=== PATIENT | female | born 1945 | race Caucasian/White ===

== ENCOUNTER 2024-01-01 00:27 | Inpatient (IN) | payer BC, OTHER ==
[~2024-01-01] VITALS: Ht 165.1 cm; Wt 90.7 kg
[2024-01-01 00:53] LABS: BASOPHILS % (AUTO) 0.7 % (0.0-2.0); HEMATOCRIT 38.3 % (31.2-41.9); HEMOGLOBIN 12.5 g/dL (10.9-14.3); LYMPHOCYTES # (AUTO) 1.6 K/uL (0.8-4.8); LYMPHOCYTES % (AUTO) 39.5 % (20.5-51.5); MEAN CORPUSCULAR HGB CONC 33 g/dL (32.3-35.6); MEAN CORPUSCULAR VOLUME 95.5 fL (75.5-95.3); MONOCYTES # (AUTO) 0.9 K/uL (0.1-1.30); MONOCYTES % (AUTO) 21.6 % (0.0-11.0); NEUTROPHILS # (AUTO) 1.5 K/uL (1.8-8.9); NEUTROPHILS % (AUTO) 37.2 % (38.5-71.5); PLATELET COUNT (AUTO) 71 K/uL (179-408); RED BLOOD CELL COUNT(AUTO) 4.01 MIL/uL (3.63-4.92); RED CELL DISTRIBUTION WIDTH 14.6 % (12.3-17.7); WHITE BLOOD COUNT (AUTO) 4.1 K/uL (3.8-11.8)
[2024-01-01 00:54] LABS: DIFFERENTIAL COMMENT 1
[2024-01-01 00:56] LABS: NEUTROPHILS % (MANUAL) 0 % (42-75)
[2024-01-01 01:17] LABS: CALCIUM 9.3 mg/dL (8.5-10.1); CARBON DIOXIDE 24 mmol/L (21-32); CHLORIDE 108 mmol/L (98-107); CREATININE 0.7 mg/dL (0.6-1.3); GLUCOSE 102 mg/dL (74-106); POTASSIUM 4.1 mmol/L (3.5-5.1); SODIUM SERUM 140 mmol/L (136-145); UREA NITROGEN, BLOOD 25 mg/dL (7-18)
[2024-01-01 01:29] LABS: ALANINE AMINOTRANSFERASE 32 U/L (14-59); ALBUMIN 3.8 g/dL (3.4-5.0); ALKALINE PHOSPHATASE 104 U/L (50-136); ASPARTATE AMINOTRANSFERASE 23 U/L (15-37); BILIRUBIN,TOTAL 1.1 mg/dL (0.2-1.0); NT-PRO BNP 1166 pg/mL (0-125); TOTAL PROTEIN, SERUM 6.6 g/dL (6.4-8.2)
[2024-01-01] MEDS ORDERED: IOHEXOL 350 100 ML INFUS..BTL ONE (01:32)
[2024-01-01] MEDS ORDERED: SWABABLE VALVE TRANSFER SET EA MC ONE (01:32)
[2024-01-01] MEDS ORDERED: IV NORMAL SALINE 250 ML IV ONE (01:32)
[2024-01-01] MEDS ORDERED: GABA-532 PO (01:33)
[2024-01-01] MEDS ORDERED: DAPA5TAB PO (01:33)
[2024-01-01] MEDS ORDERED: ALPR0.255 PO (01:33)
[2024-01-01] MEDS ORDERED: ASPI-612 PO (01:33)
[2024-01-01] MEDS ORDERED: ATOR10TA PO (01:33)
[2024-01-01] MEDS ORDERED: LEVO25TA2 PO (01:33)
[2024-01-01] MEDS ORDERED: TOPI25TA PO (01:33)
[2024-01-01] MEDS ORDERED: ESZO1TAB11 PO (01:33)
[2024-01-01] MEDS ORDERED: SACU1TAB PO (01:33)
[2024-01-01 03:08] LABS: *BILIRUBIN,URIN NEGATIVE (NEGATIVE); *BLOOD, URINE NEGATIVE (NEGATIVE); *CLARITY,URINE CLEAR (CLEAR); *COLOR,URINE YELLOW (YELLOW); *KETONES,URINE NEGATIVE (NEGATIVE); *PROTEIN,URINE NEGATIVE (NEGATIVE); *UROBILINOGEN,URINE 0.2 E.U./dl (NORMAL); LEUKOCYTE ESTERASE ,URINE NEGATIVE (NEGATIVE); NITRITE, URINE NEGATIVE (NEGATIVE); UGLUCOSE 2+ (NEGATIVE)
[2024-01-01] MEDS ORDERED: ATORVASTATIN 20 MG TABLET ONE (04:43)
[2024-01-01] MEDS: ATORVASTATIN 40 MG TABLET PO STA (04:47)
[2024-01-01] MEDS: LEVOTHYROXINE SODIUM 25 MCG TABLET PO SCH (08:03)
[2024-01-01] MEDS: BLOOD SUGAR DIAGNOSTIC 1 EACH STRIP VI SCH ×2 (08:03→10:12)
[2024-01-01] MEDS: TOPIRAMATE 25 MG TABLET PO SCH (09:17)
[2024-01-01] MEDS: GABAPENTIN 100 MG CAPSULE PO SCH (09:17)
[2024-01-01] MEDS: ASPIRIN 325 MG TABLET PO SCH (09:17)
[2024-01-01] MEDS: PANTOPRAZOLE SODIUM 40 MG VIAL IV SCH (09:17)
[2024-01-01 09:25] VITALS: BP 91/54; TEMP 98.1
[2024-01-01] MEDS ORDERED: ESCI20TA PO (09:45)
[2024-01-01] MEDS ORDERED: gemtesa (09:46)
[2024-01-01] MEDS ORDERED: METO-356 PO (09:48)
[2024-01-01] MEDS ORDERED: BUPR300T52 PO (09:50)
[2024-01-01] MEDS ORDERED: GABA300C PO ×2 (09:52)
[2024-01-01] MEDS ORDERED: OXYC-133 PO (09:53)
[2024-01-01] MEDS ORDERED: LEVO150T8 PO (09:57)
[2024-01-01] MEDS ORDERED: METOPROLOL SUCCINATE XL 25 MG TAB.SR.24H PO SCH (12:00)
[2024-01-01] MEDS ORDERED: ALPRAZOLAM 0.25 MG TABLET PO SCH (12:00)
[2024-01-01] MEDS: METOPROLOL SUCCINATE XL 25 MG TAB.SR.24H PO SCH (12:10)
[2024-01-01] MEDS: ESCITALOPRAM OXALATE 10 MG TABLET PO SCH (12:58)
[2024-01-01] MEDS: buPROPion XL 150 MG TAB.SR.24H PO SCH (12:58)
[2024-01-01] MEDS: LEVOTHYROXINE SODIUM 125 MCG TABLET PO ONE (14:10)
[2024-01-01 16:00] VITALS: BP 105/48; TEMP 98.1; O2SAT 94
[2024-01-01] MEDS: SACUBITRIL/VALSARTAN 24 MG-26 TABLET PO SCH (17:12)
[2024-01-01 20:10] VITALS: BP 98/56; TEMP 98.9; O2SAT 95
[2024-01-01] MEDS: ATORVASTATIN 40 MG TABLET PO SCH (20:37)
[2024-01-01] MEDS: GABAPENTIN 300 MG CAPSULE PO SCH (20:38)
[2024-01-01] MEDS ORDERED: ATORVASTATIN 40 MG TABLET PO SCH (21:00)
[2024-01-01] MEDS ORDERED: ATORVASTATIN 10 MG TABLET PO SCH (21:00)
[2024-01-01] MEDS: ALPRAZOLAM 0.5 MG TABLET PO PRN (23:55)
[2024-01-02] VITALS: BP 131/70; TEMP 98.3; O2SAT 95
[2024-01-02 04:59] VITALS: BP 138/54; TEMP 97.8; O2SAT 95
[2024-01-02] MEDS: LEVOTHYROXINE SODIUM 150 MCG TABLET PO SCH (06:13)
[2024-01-02 06:58] LABS: BASOPHILS % (AUTO) 0.6 % (0.0-2.0); EOSINOPHILS # (AUTO) 0.1 K/uL (0.0-0.7); EOSINOPHILS % (AUTO) 1.7 % (0.0-7.0); HEMATOCRIT 36.8 % (31.2-41.9); HEMOGLOBIN 11.9 g/dL (10.9-14.3); LYMPHOCYTES # (AUTO) 1.4 K/uL (0.8-4.8); LYMPHOCYTES % (AUTO) 42.3 % (20.5-51.5); MEAN CORPUSCULAR HGB CONC 33 g/dL (32.3-35.6); MEAN CORPUSCULAR VOLUME 95.4 fL (75.5-95.3); MONOCYTES # (AUTO) 0.7 K/uL (0.1-1.30); MONOCYTES % (AUTO) 22.1 % (0.0-11.0); NEUTROPHILS # (AUTO) 1.1 K/uL (1.8-8.9); NEUTROPHILS % (AUTO) 33.3 % (38.5-71.5); PLATELET COUNT (AUTO) 63 K/uL (179-408); RED BLOOD CELL COUNT(AUTO) 3.85 MIL/uL (3.63-4.92); RED CELL DISTRIBUTION WIDTH 14.7 % (12.3-17.7); WHITE BLOOD COUNT (AUTO) 3.3 K/uL (3.8-11.8)
[2024-01-02 07:07] LABS: DIFFERENTIAL COMMENT 1
[2024-01-02 07:08] LABS: CALCIUM 9.2 mg/dL (8.5-10.1); CARBON DIOXIDE 26 mmol/L (21-32); CHLORIDE 113 mmol/L (98-107); CREATININE 0.8 mg/dL (0.6-1.3); GLUCOSE 87 mg/dL (74-106); POTASSIUM 4.3 mmol/L (3.5-5.1); SODIUM SERUM 147 mmol/L (136-145); UREA NITROGEN, BLOOD 22 mg/dL (7-18)
[2024-01-02 07:36] VITALS: BP 119/49; TEMP 98.3; O2SAT 97
[2024-01-02] MEDS: GABAPENTIN 300 MG CAPSULE PO SCH (09:16)
[2024-01-02] MEDS: TOPIRAMATE 25 MG TABLET PO SCH (09:16)
[2024-01-02 09:45] LABS: BAND % (MANUAL) 2 % (0-10); EOSINOPHILS % (MANUAL) 1 % (0-8); LYMPHOCYTES % (MANUAL) 46 % (20-40); MONOCYTES % (MANUAL) 19 % (2-10); NEUTROPHILS % (MANUAL) 32 % (42-75)
[2024-01-02] MEDS ORDERED: CLOP75TA15 PO (12:16)
[2024-01-02] MEDS ORDERED: ASPI81TA31 PO (12:16)
[2024-01-02] MEDS: CLOTRIMAZOLE 1% CREAM 30 GM TUBE TOP SCH (13:13)
[2024-01-02] MEDS: REMEDY ESSENTIAL ZINC PASTE 113 GM TOP PRN (13:15)
[2024-01-02] MEDS: ASPIRIN 81 MG TAB.CHEW PO SCH (15:36)
[2024-01-02] MEDS: CLOPIDOGREL 75 MG TABLET PO SCH (15:36)
[2024-01-02 16:04] VITALS: BP 107/62; TEMP 98.6; O2SAT 95
[2024-01-02] MEDS ORDERED: REMEDY ESSENTIAL ZINC PASTE 113 GM TOP SCH (21:00)
[2024-01-03] MEDS ORDERED: PANTOPRAZOLE SODIUM 40 MG TABLET.DR PO SCH (07:00)
[2024-01-03] MEDS ORDERED: ASPIRIN 325 MG TABLET PO SCH (09:00)
== END 2024-01-02 16:40 | disposition home or self-care (01) | DRG 69 ==
LOC: ER 00:31 → TELE3 06:21
PROVIDERS: ATTEND Nurse Practitioner Acute Care
DX: G45.9 Transient cerebral ischemic attack, unspecified (principal); R53.2 Functional quadriplegia; D68.59 Other primary thrombophilia; C95.90 Leukemia, unspecified not having achieved remission; E66.01 Morbid (severe) obesity due to excess calories; D69.6 Thrombocytopenia, unspecified; E03.9 Hypothyroidism, unspecified; F41.9 Anxiety disorder, unspecified; I10 Essential (primary) hypertension; R29.810 Facial weakness; J45.909 Unspecified asthma, uncomplicated; E78.5 Hyperlipidemia, unspecified; K21.9 Gastro-esophageal reflux disease without esophagitis; Z68.33 Body mass index [BMI] 33.0-33.9, adult; Z79.82 Long term (current) use of aspirin; Z79.899 Other long term (current) drug therapy; Z86.73 Personal history of transient ischemic attack (TIA), and cerebral infarction without residual deficits; Z79.890 Hormone replacement therapy; Z86.69 Personal history of other diseases of the nervous system and sense organs; Z98.890 Other specified postprocedural states
CPT/HCPCS: 36415; 70030-TC; 70450; 70496; 71045; 84484; 85025; 85610; 85730; 93307; A4606; A4663; G0378; J2470; Q9967

== ENCOUNTER 2025-02-19 15:02 | Emergency (ER) | payer BC ==
[~2025-02-19] VITALS: Ht 165.1 cm; Wt 90.7 kg
[~2025-02-19 15:02] MED LIST: ALPR0.255 PO; ASPI81TA31 PO; ATOR10TA PO; BUPR300T52 PO; CLOP75TA15 PO; DAPA5TAB PO; ESCI20TA PO; ESZO1TAB11 PO; GABA-532 PO; GABA300C PO; LEVO150T8 PO; METO-356 PO; OXYC-133 PO; SACU1TAB PO; TOPI25TA PO; gemtesa
[2025-02-19 15:38] LABS: PLATELET COUNT (AUTO) 61 K/uL (179-408); RED BLOOD CELL COUNT(AUTO) 4.17 MIL/uL (3.63-4.92); RED CELL DISTRIBUTION WIDTH 15.5 % (12.3-17.7); WHITE BLOOD COUNT (AUTO) 3.4 K/uL (3.8-11.8)
[2025-02-19 15:51] LABS: ASPARTATE AMINOTRANSFERASE 22 U/L (15-37); CREATININE 0.8 mg/dL (0.6-1.3); SODIUM SERUM 143 mmol/L (136-145); TOTAL PROTEIN, SERUM 6.8 g/dL (6.4-8.2); UREA NITROGEN, BLOOD 30 mg/dL (7-18)
[2025-02-19 16:32] LABS: BAND % (MANUAL) 3 % (0-10); EOSINOPHILS % (MANUAL) 2 % (0-8); LYMPHOCYTES % (MANUAL) 32 % (20-40); MONOCYTES % (MANUAL) 20 % (2-10); NEUTROPHILS % (MANUAL) 43 % (42-75)
[2025-02-19 16:33] LABS: PLATELET ESTIMATE DECREASED
[2025-02-19 16:46] LABS: *BILIRUBIN,URIN NEGATIVE (NEGATIVE); *CLARITY,URINE CLEAR (CLEAR); *COLOR,URINE YELLOW (YELLOW); *KETONES,URINE NEGATIVE (NEGATIVE); *PROTEIN,URINE NEGATIVE (NEGATIVE); *UROBILINOGEN,URINE 0.2 E.U./dl (NORMAL); LEUKOCYTE ESTERASE ,URINE NEGATIVE (NEGATIVE); NITRITE, URINE NEGATIVE (NEGATIVE); UGLUCOSE 2+ (NEGATIVE)
[2025-02-19 16:47] LABS: *BLOOD, URINE TRACE (NEGATIVE)
[2025-02-19 17:01] LABS: SQUAMOUS EPITHELIAL CELL,UR FEW /HPF (NONE SEEN)
[2025-02-19 17:46] VITALS: BP 127/68
[2025-02-19 18:14] VITALS: BP 127/68; TEMP 98.2; O2SAT 97
== END 2025-02-19 18:15 | disposition home or self-care (01) ==
LOC: ER 15:09
DX: K57.30 Diverticulosis of large intestine without perforation or abscess without bleeding (principal); R10.31 Right lower quadrant pain; I11.0 Hypertensive heart disease with heart failure; G93.9 Disorder of brain, unspecified; G89.29 Other chronic pain; E11.9 Type 2 diabetes mellitus without complications; E66.9 Obesity, unspecified; E78.5 Hyperlipidemia, unspecified; I48.20 Chronic atrial fibrillation, unspecified; M19.011 Primary osteoarthritis, right shoulder; J45.909 Unspecified asthma, uncomplicated; C92.10 Chronic myeloid leukemia, BCR/ABL-positive, not having achieved remission; M19.012 Primary osteoarthritis, left shoulder; Z79.02 Long term (current) use of antithrombotics/antiplatelets; Z79.82 Long term (current) use of aspirin; Z79.84 Long term (current) use of oral hypoglycemic drugs; Z79.890 Hormone replacement therapy; Z79.899 Other long term (current) drug therapy; Z85.118 Personal history of other malignant neoplasm of bronchus and lung; Z86.73 Personal history of transient ischemic attack (TIA), and cerebral infarction without residual deficits; Z90.89 Acquired absence of other organs; Z91.048 Other nonmedicinal substance allergy status; Z96.643 Presence of artificial hip joint, bilateral; Z96.653 Presence of artificial knee joint, bilateral
CPT/HCPCS: 36415; 70030-TC; 71045; 83690; 84484; 87086; A4606; A4663